=== PATIENT | female | born 1985 | race Caucasian/White ===

== ENCOUNTER 2018-06-20 19:38 | Inpatient (IN) | payer BC ==
[~2018-06-20] VITALS: Ht 154.9 cm; Wt 57.3 kg
[2018-06-20] MEDS ORDERED: FUROSEMIDE20 MG PO (20:06)
[2018-06-20] MEDS ORDERED: GAS-X125 M1 PO (20:06)
[2018-06-20] MEDS ORDERED: FLECAINIDE ACE100 MG PO (20:06)
[2018-06-20] MEDS ORDERED: MAGNESIUM OXID500 MG PO (20:06)
[2018-06-20 21:29] LABS: BASOPHILS 0.2 % (0-2); EOSINOPHILS 0 % (0-7); HEMATOCRIT 36.4 % (36.0-48.0); HEMOGLOBIN 12.3 g/dL (12-16); IMMATURE GRANULOCYTES 0.2 % (0-5); MCH 29.8 pg (26.0-34.0); MCHC 33.8 g/dL (31.0-37.0); MCV 88.1 fL (80.0-100.0); MEAN PLATELET VOLUME 10.2 fL (7.4-10.4); MONOCYTES 10.7 % (2-11); NEUTROPHILS 77.9 % (40-80); PLATELET COUNT 198 10x3/uL (130-400); RBC 4.13 10x6/uL (4.00-5.40); RDW 12.9 % (11.5-14.5); WBC 8.4 10x3/uL (4.8-10.8)
[2018-06-20 21:50] LABS: ALBUMIN 3.6 g/dL (3.4-5.0); ALKALINE PHOSPHATASE 71 U/L (46-116); ALT (SGPT) 17 U/L (10-68); CALC OSMOLALITY 278 mosm/kg (275-300); CALCIUM 8.7 mg/dL (8.5-10.1); CARBON DIOXIDE 20.7 mmol/L (21.0-32.0); CHLORIDE - SERUM 105 mmol/L (98-107); CREATININE - SERUM 0.9 mg/dL (0.6-1.3); GLUCOSE 108 mg/dL (74-106); PROTEIN - SERUM 7.4 g/dL (6.4-8.2); SODIUM 140 mmol/L (136-145); UREA NITROGEN 10 mg/dL (7-18); eGFR NON AFRICAN AMERICAN 76 mL/min (90-120)
[2018-06-20 22:30] LABS: APPEARANCE CLEAR (CLEAR); COLOR YELLOW (YELLOW); GLUCOSE NEGATIVE (NEGATIVE); NITRITE NEGATIVE (NEGATIVE); PROTEIN 1+ mg/dL (NEGATIVE); SPECIFIC GRAVITY 1.005 (1.005-1.020)
[2018-06-20 22:31] LABS: BACTERIA FEW /hpf (NONE SEEN); BILIRUBIN NEGATIVE (NEGATIVE); EPITHELIAL CELLS 0-5 /hpf (0-5); KETONE MODERATE mg/dL (NEGATIVE); RED CELLS - URINE RARE /hpf (0-5); UROBILINOGEN NORMAL (NORMAL); WHITE CELLS - URINE 0-5 /hpf (0-5)
[2018-06-20 23:10] VITALS: BP 127/87
[2018-06-21 02:58] VITALS: BP 118/74; BMI 23.8
[2018-06-21 04:00] VITALS: BP 114/68
[2018-06-21 07:26] LABS: BASOPHILS 0.1 % (0-2); EOSINOPHILS 0 % (0-7); HEMOGLOBIN 11.1 g/dL (12-16); IMMATURE GRANULOCYTES 0.3 % (0-5); LYMPHOCYTES 6.7 % (15-50); MCH 29.1 pg (26.0-34.0); MCHC 32.6 g/dL (31.0-37.0); MCV 89.2 fL (80.0-100.0); MEAN PLATELET VOLUME 10.3 fL (7.4-10.4); MONOCYTES 8.7 % (2-11); NEUTROPHILS 84.2 % (40-80); RBC 3.81 10x6/uL (4.00-5.40); RDW 13.2 % (11.5-14.5); WBC 7.4 10x3/uL (4.8-10.8)
[2018-06-21 07:29] LABS: CALC OSMOLALITY 276 mosm/kg (275-300); CALCIUM 7.8 mg/dL (8.5-10.1); CARBON DIOXIDE 21.1 mmol/L (21.0-32.0); CHLORIDE - SERUM 106 mmol/L (98-107); CREATININE - SERUM 0.9 mg/dL (0.6-1.3); GLUCOSE 106 mg/dL (74-106); POTASSIUM - SERUM 3.9 mmol/L (3.5-5.1); SODIUM 139 mmol/L (136-145); UREA NITROGEN 10 mg/dL (7-18); eGFR NON AFRICAN AMERICAN 76 mL/min (90-120)
[2018-06-21 07:32] LABS: PLATELET COUNT 158 10x3/uL (130-400)
[2018-06-21 20:17] VITALS: BP 113/72
[2018-06-22 01:10] VITALS: BP 113/77
[2018-06-22 04:35] LABS: BASOPHILS 0.2 % (0-2); EOSINOPHILS 0 % (0-7); HEMATOCRIT 30.5 % (36.0-48.0); IMMATURE GRANULOCYTES 0.2 % (0-5); MCH 29.3 pg (26.0-34.0); MCHC 32.8 g/dL (31.0-37.0); MCV 89.4 fL (80.0-100.0); MEAN PLATELET VOLUME 10.7 fL (7.4-10.4); MONOCYTES 14.7 % (2-11); NEUTROPHILS 68.9 % (40-80); PLATELET COUNT 155 10x3/uL (130-400); RBC 3.41 10x6/uL (4.00-5.40); RDW 13.4 % (11.5-14.5)
[2018-06-22 04:37] LABS: WBC 4.6 10x3/uL (4.8-10.8)
[2018-06-22 04:39] LABS: CALCIUM 7.6 mg/dL (8.5-10.1); CARBON DIOXIDE 21.5 mmol/L (21.0-32.0); CHLORIDE - SERUM 109 mmol/L (98-107); CREATININE - SERUM 0.8 mg/dL (0.6-1.3); GLUCOSE 105 mg/dL (74-106); SODIUM 142 mmol/L (136-145); eGFR NON AFRICAN AMERICAN 87 mL/min (90-120)
[2018-06-22 04:51] LABS: CALC OSMOLALITY 279 mosm/kg (275-300); POTASSIUM - SERUM 3.1 mmol/L (3.5-5.1); UREA NITROGEN 4 mg/dL (7-18)
[2018-06-22 05:36] VITALS: BP 129/49
[2018-06-22 08:45] VITALS: BP 113/79
[2018-06-22 12:59] VITALS: BP 121/85
[2018-06-22 13:17] LABS: PHOSPHOROUS 3.1 mg/dL (2.5-4.9)
[2018-06-22 16:54] VITALS: Ht 154.9 cm; Wt 57.3 kg
[2018-06-22 17:01] VITALS: BP 131/53
[2018-06-22 20:23] VITALS: BP 134/91
[2018-06-23 04:23] VITALS: BP 135/96
[2018-06-23 05:01] LABS: HEMOGLOBIN 10.1 g/dL (12-16); LYMPHOCYTES 27.7 % (15-50); MCH 29.8 pg (26.0-34.0); MCHC 33.7 g/dL (31.0-37.0); MCV 88.5 fL (80.0-100.0); MEAN PLATELET VOLUME 9.4 fL (7.4-10.4); NEUTROPHILS 62.1 % (40-80); PLATELET COUNT 164 10x3/uL (130-400); RBC 3.39 10x6/uL (4.00-5.40); RDW 13.1 % (11.5-14.5); WBC 3.4 10x3/uL (4.8-10.8)
[2018-06-23 05:05] LABS: CALC OSMOLALITY 282 mosm/kg (275-300); CALCIUM 7.9 mg/dL (8.5-10.1); CARBON DIOXIDE 22.1 mmol/L (21.0-32.0); CHLORIDE - SERUM 110 mmol/L (98-107); CREATININE - SERUM 0.7 mg/dL (0.6-1.3); GLUCOSE 93 mg/dL (74-106); POTASSIUM - SERUM 3.7 mmol/L (3.5-5.1); SODIUM 143 mmol/L (136-145); eGFR NON AFRICAN AMERICAN > 90 mL/min (90-120)
[2018-06-23 05:20] LABS: UREA NITROGEN 6 mg/dL (7-18)
[2018-06-23 08:22] VITALS: BP 135/92
[2018-06-23] MEDS ORDERED: FLORAJEN3 CAPS460 MG PO (09:27)
[2018-06-23] MEDS ORDERED: LEVAQUIN750 MG PO (09:27)
== END 2018-06-23 11:22 | disposition home or self-care (01) | DRG 872 ==
LOC: D.ER 19:38 → D.WS 23:42 → OBSVTIME 23:42 → D.MS 23:42 → D.EDHOLD 23:42 → D.WS 06-21 00:23 → D.MS 06-21 17:37
PROVIDERS: Emergency Medicine; Family Medicine; ADMIT Family Medicine
DX: R78.81 Bacteremia (principal)

== ENCOUNTER 2018-06-24 11:49 | Inpatient (IN) | payer BC ==
[~2018-06-24] VITALS: Ht 154.9 cm; Wt 57.3 kg
[~2018-06-24 11:49] MED LIST: FLECAINIDE ACE100 MG PO; FLORAJEN3 CAPS460 MG PO; FUROSEMIDE20 MG PO; GAS-X125 M1 PO; LEVAQUIN750 MG PO; MAGNESIUM OXID500 MG PO
--- NOTE | 2018-06-24 13:02 | NUR ---
RECIEVED PT FROM OUTPATIENT. POSTIVE BLOOD CULTURE RESULTS REQUIRING IV ANTIBIOTICS.
[2018-06-24 14:06] LABS: BASOPHILS 0.9 % (0-2); EOSINOPHILS 0.9 % (0-7); HEMATOCRIT 31.2 % (36.0-48.0); HEMOGLOBIN 10.3 g/dL (12-16); IMMATURE GRANULOCYTES 0.3 % (0-5); LYMPHOCYTES 37.8 % (15-50); MCH 29.4 pg (26.0-34.0); MCV 89.1 fL (80.0-100.0); MEAN PLATELET VOLUME 9.9 fL (7.4-10.4); MONOCYTES 12.3 % (2-11); NEUTROPHILS 47.8 % (40-80); RDW 13.4 % (11.5-14.5); WBC 3.3 10x3/uL (4.8-10.8)
[2018-06-24 14:16] LABS: ALBUMIN 2.8 g/dL (3.4-5.0); ALKALINE PHOSPHATASE 109 U/L (46-116); ALT (SGPT) 36 U/L (10-68); BILIRUBIN - TOTAL 0.24 mg/dL (0.2-1.3); CALC OSMOLALITY 279 mosm/kg (275-300); CALCIUM 8.6 mg/dL (8.5-10.1); CARBON DIOXIDE 23.4 mmol/L (21.0-32.0); CHLORIDE - SERUM 106 mmol/L (98-107); CREATININE - SERUM 0.7 mg/dL (0.6-1.3); GLUCOSE 98 mg/dL (74-106); POTASSIUM - SERUM 3.5 mmol/L (3.5-5.1); PROTEIN - SERUM 6.5 g/dL (6.4-8.2); SODIUM 140 mmol/L (136-145); UREA NITROGEN 16 mg/dL (7-18); eGFR NON AFRICAN AMERICAN > 90 mL/min (90-120)
[2018-06-24 14:18] LABS: PLATELET COUNT 244 10x3/uL (130-400)
[2018-06-24 15:21] VITALS: BMI 23.8
[2018-06-24 15:27] VITALS: BP 130/79
[2018-06-24 17:39] LABS: APPEARANCE CLEAR (CLEAR); COLOR YELLOW (YELLOW)
[2018-06-24 17:43] LABS: % SATURATION 14 % (15-55); IRON 41 ug/dl (35-150); TOTAL IRON BIND CAPACITY 276 ug/dl (260-445); UNSAT IRON BIND CAPACITY 235 ug/dl (150-375)
[2018-06-24 17:57] LABS: BILIRUBIN NEGATIVE (NEGATIVE); GLUCOSE NEGATIVE (NEGATIVE); KETONE NEGATIVE (NEGATIVE); NITRITE NEGATIVE (NEGATIVE); PROTEIN NEGATIVE (NEGATIVE); UROBILINOGEN NORMAL (NORMAL)
--- NOTE | 2018-06-24 19:40 | NUR ---
INITIAL ROUNDS COMPLETED. NO IV ACCESS AT THIS TIME. GAINED ACCESS VIA TIBURCIO ALLISON. PT NOW LESS ANXIOUS THAT WE WERE ABLE TO GAIN ACCESS. NO OTHER NEEDS NOTED AT THIS TIME, WCTM AND FOLLOW POC. SR UP X2, CL IN REACH, BE IN LOW POSITION.
[2018-06-24 19:44] VITALS: BP 126/81
[2018-06-24 20:56] VITALS: Ht 154.9 cm; Wt 57.3 kg
[2018-06-24 23:50] VITALS: BP 133/85
[2018-06-25 03:45] VITALS: BP 130/86
[2018-06-25 05:41] LABS: BASOPHILS 0.7 % (0-2); EOSINOPHILS 2.4 % (0-7); HEMATOCRIT 30.4 % (36.0-48.0); IMMATURE GRANULOCYTES 0.5 % (0-5); LYMPHOCYTES 38.1 % (15-50); MCH 29.1 pg (26.0-34.0); MCHC 32.9 g/dL (31.0-37.0); MCV 88.4 fL (80.0-100.0); MEAN PLATELET VOLUME 9.6 fL (7.4-10.4); MONOCYTES 11.4 % (2-11); NEUTROPHILS 46.9 % (40-80); PLATELET COUNT 265 10x3/uL (130-400); RBC 3.44 10x6/uL (4.00-5.40); RDW 13.4 % (11.5-14.5); WBC 4.1 10x3/uL (4.8-10.8)
[2018-06-25 06:02] LABS: ALBUMIN 2.5 g/dL (3.4-5.0); ALKALINE PHOSPHATASE 92 U/L (46-116); ALT (SGPT) 30 U/L (10-68); CALCIUM 8.1 mg/dL (8.5-10.1); CARBON DIOXIDE 24.7 mmol/L (21.0-32.0); CHLORIDE - SERUM 108 mmol/L (98-107); CREATININE - SERUM 0.8 mg/dL (0.6-1.3); GLUCOSE 92 mg/dL (74-106); POTASSIUM - SERUM 3.6 mmol/L (3.5-5.1); PROTEIN - SERUM 5.9 g/dL (6.4-8.2); SODIUM 138 mmol/L (136-145); eGFR NON AFRICAN AMERICAN 87 mL/min (90-120)
[2018-06-25 06:17] LABS: CALC OSMOLALITY 274 mosm/kg (275-300); UREA NITROGEN 10 mg/dL (7-18)
--- NOTE | 2018-06-25 07:51 | NUR ---
AAOX4.PT RESTING IN BED. NO S/S OF ACUTE DISTRESS. DENIES ANY NEEDS. CL IN PLACE.
[2018-06-25 08:00] VITALS: BP 130/78
[2018-06-25 16:00] VITALS: BP 109/72
[2018-06-25 17:55] VITALS: BP 140/86
--- NOTE | 2018-06-25 18:46 | NUR ---
PT CO BOYER. TYLENOL GIVEN. NO RELIEF. FIORCET GIVEN. PT VOMITED X 3. SPOKE WITH DR FALCON WHO GAVE TO FOR ZOFRAN. ZOFRAN GIVEN. PT STATES BOYER IS NOW 08/21. NO S/S OF ACUTE DISTRESS. AT BS.
--- NOTE | 2018-06-25 19:30 | NUR ---
RECEIVED REPORT, WILL ASSUME CARE OF PT, PT IS SLEEPING, AT BEDSIDE, BED IS LOW, SRX2, CALL LIGHT IN REACH, WILL CONTINUE PLAN OF CARE
--- NOTE | 2018-06-25 23:51 | NUR ---
COMPLAINS OF HEADACHE,ASKING FOR FLIORICET, GAVE ORDER
[2018-06-26 03:51] VITALS: BP 114/67
--- NOTE | 2018-06-26 04:00 | NUR ---
PT RESTING IN BED WITH RESPS EVEN/NONLABORED. NO DISTRESS. MONITOR AND CPOC.
[2018-06-26 04:45] LABS: BASOPHILS 0.3 % (0-2); EOSINOPHILS 1.5 % (0-7); HEMATOCRIT 32.9 % (36.0-48.0); HEMOGLOBIN 10.8 g/dL (12-16); LYMPHOCYTES 40.7 % (15-50); MCH 29.2 pg (26.0-34.0); MCHC 32.8 g/dL (31.0-37.0); MCV 88.9 fL (80.0-100.0); MEAN PLATELET VOLUME 9.6 fL (7.4-10.4); MONOCYTES 10.9 % (2-11); NEUTROPHILS 45.6 % (40-80); RDW 13.3 % (11.5-14.5)
[2018-06-26 05:01] LABS: PLATELET COUNT 329 10x3/uL (130-400)
[2018-06-26 05:29] LABS: ALBUMIN 2.9 g/dL (3.4-5.0); ALKALINE PHOSPHATASE 96 U/L (46-116); ALT (SGPT) 31 U/L (10-68); BILIRUBIN - TOTAL 0.18 mg/dL (0.2-1.3); CALCIUM 8.5 mg/dL (8.5-10.1); CARBON DIOXIDE 24.4 mmol/L (21.0-32.0); CHLORIDE - SERUM 107 mmol/L (98-107); CREATININE - SERUM 0.7 mg/dL (0.6-1.3); GLUCOSE 88 mg/dL (74-106); POTASSIUM - SERUM 3.4 mmol/L (3.5-5.1); PROTEIN - SERUM 6.5 g/dL (6.4-8.2); SODIUM 143 mmol/L (136-145); eGFR NON AFRICAN AMERICAN > 90 mL/min (90-120)
[2018-06-26 05:31] LABS: CALC OSMOLALITY 281 mosm/kg (275-300); UREA NITROGEN 7 mg/dL (7-18)
--- NOTE | 2018-06-26 08:05 | NUR ---
AAOX4. DENIES N/V. DID STATE SHE "HAD A SMALL BOYER IN THE BACK OF HER HEAD". WILL BRING FIORCET WITH AM MEDS. BROUGHT PT NEW ICE WATER AND COFFEE. NO S/S OF ACUTE DISTRESS. CL IN PLACE.
[2018-06-26 08:59] VITALS: BP 112/64
[2018-06-26 13:05] VITALS: BP 119/73
[2018-06-26] MEDS ORDERED: ESGIC TABLET1 TAB PO (14:13)
--- NOTE | 2018-06-26 18:18 | NUR ---
PT SITTING UP IN BED WATCHING TV. PT CO OF "TOLD SHE WOULD BE DC WHEN SHE WAS CALLED FROM HOME TO RETURN TO HOSPITAL FOT +BLOOD CULTURE AND ABT. STRATEGY MANAGER AGREED PT COULD STAY. PT "WORRIED SHE WOULD HAVE TO RETURN IF DC EARLY." NO S/S OF ACUTE DISTRESS. CL IN PLACE.
--- NOTE | 2018-06-26 19:34 | NUR ---
RECEIVED REPORT, WILL ASSUME CARE OF PT, PT IS UP TO RESTROOM, DENIES ANY NEEDS AT THIS TIME, WILL CONTINUE PLAN OF CARE
[2018-06-26 19:45] VITALS: BP 127/79
[2018-06-26 23:41] VITALS: BP 130/80
[2018-06-27 03:49] VITALS: BP 135/86
--- NOTE | 2018-06-27 04:07 | NUR ---
PT RESTING IN BED WITH NO DISTRESS. RESPS NONLABORED. MONITOR AND CPOC. CALL LIGHT IN REACH.
[2018-06-27 06:20] LABS: BASOPHILS 0.8 % (0-2); EOSINOPHILS 2.1 % (0-7); HEMATOCRIT 33.5 % (36.0-48.0); HEMOGLOBIN 10.8 g/dL (12-16); IMMATURE GRANULOCYTES 0.9 % (0-5); LYMPHOCYTES 41.4 % (15-50); MCH 29.2 pg (26.0-34.0); MCHC 32.2 g/dL (31.0-37.0); MCV 90.5 fL (80.0-100.0); MEAN PLATELET VOLUME 9.5 fL (7.4-10.4); MONOCYTES 9.8 % (2-11); PLATELET COUNT 375 10x3/uL (130-400); RDW 13.5 % (11.5-14.5)
[2018-06-27 06:35] LABS: ALBUMIN 2.8 g/dL (3.4-5.0); ALKALINE PHOSPHATASE 93 U/L (46-116); ALT (SGPT) 37 U/L (10-68); BILIRUBIN - TOTAL 0.19 mg/dL (0.2-1.3); CALCIUM 8.3 mg/dL (8.5-10.1); CARBON DIOXIDE 27.4 mmol/L (21.0-32.0); CHLORIDE - SERUM 106 mmol/L (98-107); GLUCOSE 89 mg/dL (74-106); POTASSIUM - SERUM 4.1 mmol/L (3.5-5.1); PROTEIN - SERUM 6.6 g/dL (6.4-8.2); SODIUM 140 mmol/L (136-145)
[2018-06-27 06:38] LABS: CALC OSMOLALITY 276 mosm/kg (275-300); CREATININE - SERUM 0.9 mg/dL (0.6-1.3); UREA NITROGEN 10 mg/dL (7-18); eGFR NON AFRICAN AMERICAN 76 mL/min (90-120)
[2018-06-27 06:52] LABS: WBC 5.3 10x3/uL (4.8-10.8)
--- NOTE | 2018-06-27 07:16 | NUR ---
REPORT RECEIVED. WILL CONTINUE WITH POC. PT CURRENTLY LYING ON LEFT SIDE. CALL LIGHT W/I REACH. PT RESTING AT THE MOMENT. RR EVEN AND UNLABORED ON RA. NS INFUSING @KVO VIA L.FOR PIV. PT IS UP AD TORIN AND DENIES ANY NEEDS AT THE MOMENT. WILL CTM.
[2018-06-27 08:10] VITALS: BP 111/70
--- NOTE | 2018-06-27 09:20 | NUR ---
AM MEDICATIONS ADMINISTERED. PT DENIES ANY NEEDS. WILL CTM.
--- NOTE | 2018-06-27 09:24 | NUR ---
IV PATENT. RAHEEM NEEDS AT THIS TIME. CALL LIGHT IN REACH. WILL MONITOR NEEDS.
[2018-06-27 11:45] VITALS: BP 120/76
[2018-06-27] MEDS ORDERED: LEVAQUIN750 MG PO (14:40)
[2018-06-27] MEDS ORDERED: FERROUS SULFAT325 MG PO (15:28)
--- NOTE | 2018-06-27 15:38 | NUR ---
PT DISCHARGED HOME VIA WHEELCHAIR WITH FAMILY. PIV REMOVED WITH CATHETER TIP FULLY INTACT. PT SIGNED PROPER DISCHARGE INSTRUCTION AND REMOVED ALL VALUABLES FROM THE ROOM. SCRIPT GIVEN.
--- NOTE | 2018-06-27 15:38 | NUR ---
RECEIEVED ORDERS TO ADD IRON 325MG TID TO PATIENT DISCHARGE MED LIST. UPDATED MED LIST.
--- NOTE | 2018-06-29 17:06 | MORECARE ---
CASE MANAGEMENT DISCHARGE SUMMARY PATIENT: ALEJA CARRENO UNIT: [id number] ADM DATE: 06/24/18 AGE: 32 : 81 SEX: F ROOM/BED: D.2110 AUTHOR: JUSTIN CHERRY PHYSICIAN: REFERRING PHYSICIAN: VAN PALACIOS MD DATE OF SERVICE: 06/29/18 Discharge Plan Patient Name: ALEJA CARRENO Facility: [facility]:[place] : 1985 Planned Disposition: Home Anticipated Discharge Date: 06/27/18 Discharge Date: 06/27/2018 Expected LOS: 3 Initial Reviewer: [email or web address] Initial Review Date: 06/29/2018 Generated: 06/29/18 6:06 pm Patient Name: ALEJA CARRENO Page [id number] at 1706 All edits/amendments must be made on the electronic document DICTATION DATE: 06/29/181705 PAPER HANGER: DAYO 06/29/181705 RPT#: [id number] DC DATE:06/27/18 STATUS: DIS IN [facility] [address] [place] [address] END OF REPORT
== END 2018-06-27 16:01 | disposition home or self-care (01) | DRG 690 ==
LOC: D.M2 11:49
PROVIDERS: Emergency Medicine; Internal Medicine Hematology & Oncology; ADMIT Family Medicine
DX: N39.0 Urinary tract infection, site not specified (principal); R78.81 Bacteremia; B96.20 Unspecified Escherichia coli [E. coli] as the cause of diseases classified elsewhere; F41.9 Anxiety disorder, unspecified; D50.9 Iron deficiency anemia, unspecified; N20.0 Calculus of kidney; Z87.891 Personal history of nicotine dependence